=== PATIENT | female | born 2005 | race Caucasian/White ===

== ENCOUNTER 2024-07-11 14:33 | Emergency (ER) | payer BC, MEDICAID ==
[2024-07-11] MEDS ORDERED: Sodium Chloride 0.9% 10 ML Syringe FLUSH PRN (14:52)
[2024-07-11 15:17] LABS: BASOPHILS PERCENT AUTO 0.4 % (0.0-1.0); EOSINOPHILS PERCENT AUTO 0.3 % (1.0-3.0); HEMOGLOBIN 15.1 g/dL (12.0-16.0); LYMPHOCYTES PERCENT AUTO 17.3 % (20.5-50.1); MEAN CORPUSCULAR HEMOGLOBIN 30.6 pg (27.0-34.0); MEAN CORPUSCULAR HGB CONC 35.1 g/dL (33.0-35.0); MONOCYTES PERCENT AUTO 14.1 % (2-8); NEUTROPHILS PERCENT AUTO 67.9 % (42.2-75.2); PLATELET COUNT,PLT 462 10^3/uL (150-450); RED BLOOD CELL COUNT 4.94 10^6/uL (4.2-5.4); WHITE BLOOD CELL COUNT,WBC 13.4 10^3/uL (5.0-10.0)
[2024-07-11] MEDS: Haloperidol Lactate 5 MG/ML SDV IVPUSH ONE (15:34)
[2024-07-11] MEDS: diphenhydrAMINE 50 MG/ML SDV IVPUSH ONE (15:35)
[2024-07-11] MEDS: LORazepam 2 MG/ML SDV IVPUSH ONE (15:35)
[2024-07-11 15:47] LABS: A/G RATIO 1.2; ALANINE AMINOTRANSFERASE,ALT 24 U/L (14-59); ALBUMIN 4.5 g/dL (3.4-5.0); ALKALINE PHOSPHATASE 58 U/L (46-116); ANION GAP 17.9 mEq/L (7-13); ASPARTATE AMNIOTRANSFERASE,AST 15 U/L (15-37); BILIRUBIN TOTAL 1.8 mg/dL (0.2-1.0); BLOOD UREA NITROGEN,BUN 12 mg/dL (7-18); C-REACTIVE PROTEIN 0.61 ng/dL (<=0.50); CALCIUM 9.8 mg/dL (8.5-10.1); CARBON DIOXIDE,CO2 24 mmol/L (21-32); CHLORIDE,CL 98 mmol/L (98-107); CREATININE 0.86 mg/dL (0.55-1.02); GLUCOSE RANDOM 95 mg/dL (70-99); MAGNESIUM 2.2 mg/dL (1.8-2.4); POTASSIUM,K 2.9 mmol/L (3.5-5.1); PROTEIN TOTAL,TP 8.4 g/dL (6.4-8.2); SODIUM,NA 137 mmol/L (136-145); T4 FREE 1.76 ng/dL (0.76-1.46); TSH ULTRASENSITIVE 0.57 uIU/mL (0.36-3.74)
[2024-07-11 15:49] LABS: ESTIMATED GFR 100 mL/min (>=60); ETHANOL BLOOD MEDICAL < 3 mg/dL (0)
[2024-07-11] MEDS: Iopamidol 755 Mg/ML 100 ML Bottle IVPUSH ONE (16:00)
[2024-07-11] MEDS: Potassium Chloride 20 MEQ in Premix Bag 1 BAG IV ONE (17:29)
[2024-07-11] MEDS: Sodium Chloride 0.9% 1,000 ML IV ONE (17:30)
[2024-07-11] MEDS: Morphine 4 MG/ML Syringe IVPUSH ONE (20:27)
[2024-07-11] MEDS: Nicotine 7 MG/24 Hr Patch TRDERM ONE (20:27)
[2024-07-11] MEDS: Pantoprazole 40 MG in Sodium Chloride 0.9% 100 ML IV ONE (20:28)
[2024-07-11] MEDS ORDERED: Sodium Chloride 0.9% 100 ML ONE (20:29)
[2024-07-11 21:15] LABS: APPEARANCE,URINE CLEAR (CLEAR); BILIRUBIN,URINE NEGATIVE (NEGATIVE); COLOR,URINE YELLOW (YELLOW); GLUCOSE,URINE NEGATIVE (NEGATIVE); KETONES,URINE 15 (NEGATIVE); LEUKOCYTE ESTERASE,URINE NEGATIVE (NEGATIVE); NITRITE,URINE NEGATIVE (NEGATIVE); OCCULT BLOOD,URINE NEGATIVE (NEGATIVE); PH,URINE 6.5 (5.0-9.0); PROTEIN,URINE TRACE (NEGATIVE)
[2024-07-11 21:16] LABS: MDMA (ECSTASY), URINE NEGATIVE (NEGATIVE); METHADONE,URINE NEGATIVE (NEGATIVE); METHAMPHETAMINES,URINE NEGATIVE (NEGATIVE)
[2024-07-11 21:17] LABS: AMPHETAMINES,URINE NEGATIVE (NEGATIVE); BARBITURATES,URINE NEGATIVE (NEGATIVE); BENZODIAZEPINE,URINE POSITIVE (NEGATIVE); OPIATES,URINE POSITIVE (NEGATIVE); OXYCODONE,URINE NEGATIVE (NEGATIVE); PHENCYCLIDINE,URINE NEGATIVE (NEGATIVE); TCA,URINE NEGATIVE (NEGATIVE)
[2024-07-11 21:55] LABS: BACTERIA,URINE FEW /HPF (0-FEW/HPF); EPITHELIAL CELLS,URINE FEW /HPF (NOT SEEN); WBC,URINE 0-5 /HPF (0-5/HPF)
[2024-07-12] MEDS: Mineral Oil/White Petrolatum Crm 113 GM Jar TOP PRN (09:57)
== END 2024-07-12 11:08 ==
LOC: DL.ED 14:33
DX: S50.11XA Contusion of right forearm, initial encounter (principal); S50.12XA Contusion of left forearm, initial encounter; S10.93XA Contusion of unspecified part of neck, initial encounter; R10.13 Epigastric pain; E87.6 Hypokalemia; F41.9 Anxiety disorder, unspecified; Z32.01 Encounter for pregnancy test, result positive; X78.9XXA Intentional self-harm by unspecified sharp object, initial encounter
CPT/HCPCS: 36415; 71045; 74174; 80053; 80305; 80307; 81001; 83690; 83735; 84439; 84443; 84702; 84703; 85025; 86140; 87428; 93005; 93010; 96365; 96366; 96367; 96375; 99285; A9270; J1200; J1630; J2060; J2270; J2470; J3480; J7030; Q9967

== ENCOUNTER 2025-01-13 06:48 | Emergency (ER) | payer MEDICAID ==
[2025-01-13 07:09] LABS: BASOPHILS PERCENT AUTO 0.3 % (0.0-1.0); EOSINOPHILS PERCENT AUTO 0.2 % (1.0-3.0); LYMPHOCYTES PERCENT AUTO 12.7 % (20.5-50.1); MONOCYTES PERCENT AUTO 6.0 % (2-8); NEUTROPHILS PERCENT AUTO 80.8 % (42.2-75.2); PLATELET COUNT,PLT 407 10^3/uL (150-450); RED BLOOD CELL COUNT 4.73 10^6/uL (4.2-5.4); WHITE BLOOD CELL COUNT,WBC 20.0 10^3/uL (5.0-10.0)
[2025-01-13] MEDS: Ondansetron 4 MG/2 ML SDV IVPUSH ONE (07:09)
[2025-01-13] MEDS: diphenhydrAMINE 50 MG/ML SDV IVPUSH ONE (07:25)
[2025-01-13 07:27] LABS: HCG QUALITATIVE,SERUM NEGATIVE (NEGATIVE)
[2025-01-13 07:29] LABS: A/G RATIO 1.4; ALANINE AMINOTRANSFERASE,ALT 22 U/L (14-59); ASPARTATE AMNIOTRANSFERASE,AST 13 U/L (15-37); BILIRUBIN DIRECT 0.2 mg/dL (0.0-0.2); BILIRUBIN INDIRECT 0.7; BILIRUBIN TOTAL 0.9 mg/dL (0.2-1.0); BLOOD UREA NITROGEN,BUN 13 mg/dL (7-18); CARBON DIOXIDE,CO2 18 mmol/L (21-32); CHLORIDE,CL 105 mmol/L (98-107); CREATININE 1.15 mg/dL (0.55-1.02); ESTIMATED GFR 70 mL/min (>=60); ETHANOL BLOOD MEDICAL < 3 mg/dL (0); GLUCOSE RANDOM 121 mg/dL (70-99); POTASSIUM,K 4.2 mmol/L (3.5-5.1); PROTEIN TOTAL,TP 7.9 g/dL (6.4-8.2); SODIUM,NA 144 mmol/L (136-145)
== END 2025-01-13 08:33 | disposition left against medical advice (07) ==
LOC: DL.ED 06:48
DX: R10.84 Generalized abdominal pain (principal); T21.14XA Burn of first degree of lower back, initial encounter; F41.9 Anxiety disorder, unspecified; F17.200 Nicotine dependence, unspecified, uncomplicated; Z79.899 Other long term (current) drug therapy; X12.XXXA Contact with other hot fluids, initial encounter; Y93.89 Activity, other specified
CPT/HCPCS: 36415; 80048; 80076; 80143; 80179; 80307; 82150; 83690; 84703; 85025; 96374; 96375; 99284; J1200; J1630; J2405; J3360